=== PATIENT | male | born 1970 | race Caucasian/White ===

== ENCOUNTER 2017-02-05 20:31 | Emergency (ER) | payer OTHER ==
[~2017-02-05] VITALS: Ht 180.3 cm; Wt 95.5 kg
[2017-02-05 21:32] LABS: HEMATOCRIT 46.8 % (38.0-50.0); MCH 30.2 PG (29.0-34.0); MCHC 33.8 G/DL (30.0-36.0); MCV 89.3 FL (86-99); MEAN PLAT.VOLUME 10.1 uM^3 (9.0-12.4); PLATELET COUNT 316 K/uL (156-360); RBC DIS.WIDTH-CV 12.6 % (11.8-14.6); RBC DIS.WIDTH-SD 41.4 % (39-53); RED BLOOD COUNT 5.24 M/uL (4.00-5.50); WHITE BLOOD COUNT 10.9 K/uL (4.1-10.2)
[2017-02-05 22:12] LABS: CHLORIDE 102 mEq/L (99-109); POTASSIUM 4.3 mEq/L (3.7-5.4); SODIUM 139 mEq/L (136-147)
[2017-02-05 22:14] LABS: GLUCOSE 138 mg/dL (70-99)
[2017-02-05 22:15] LABS: ANION GAP 12 MEQ/L (2-14)
[2017-02-05 22:18] LABS: GFR ESTIMATE (CALCULATED) > 59 mL/min/; UREA NITROGEN (BUN) 9 mg/dL (9-23)
[2017-02-05] MEDS ORDERED: LEVAQUIN500 MG PO (22:39)
[2017-02-05 22:53] VITALS: BP 147/96
== END 2017-02-05 22:56 | disposition home or self-care (01) ==
LOC: EME 20:31
PROVIDERS: Physician Assistant
DX: J32.0 Chronic maxillary sinusitis (principal); H61.23 Impacted cerumen, bilateral; Z88.6 Allergy status to analgesic agent
CPT/HCPCS: 70486; 80048; 85027; 99281; 99284